=== PATIENT | male | born 1985 | race Hispanic/Latino ===

== ENCOUNTER 2017-12-28 17:33 | Emergency (ER) | payer BC ==
[2017-12-28 18:13] VITALS: RESP 18; O2SAT 98
[2017-12-28] MEDS ORDERED: Sodium Chloride 0.9% 1,000 ML IV STA (18:36)
[2017-12-28] MEDS ORDERED: Iohexol 240 (50 ml) PO ONE (18:36)
--- NOTE | 2017-12-28 18:43 | ED PDOC ---
HPI: Abdomen Time Seen by Provider: 12/28/17 18:18 Chief Complaint (Nursing): Abdominal Pain Chief Complaint (Provider): abdominal pain History Per: Patient History/Exam Limitations: no limitations Onset/Duration Of Symptoms: Hrs (today) Current Symptoms Are (Timing): Still Present Context: Food Location Of Pain/Discomfort: Epigastric, LLQ Quality Of Discomfort: Cramping, Burning Associated Symptoms: denies: Nausea, Vomiting, Diarrhea, Back Pain, Chest Pain, Constipation, Urinary Symptoms Additional Complaint(s): Cruz Frias is a 32 year old male, with no significant past medical history , who presents to the emergency department complaining of an intermittent epigastric and LLQ pain onset today. Patient states symptoms began after he had lunch and describes the pain as a burning and cramping sensation. He denies similar symptoms in the past. Patient went to [facility] where has given a prescription for a CT to rule out diverticulitis. He denies any chest pain, back pain, weakness, numbness or tingling, incontinence, dysuria, constipation, shortness of breath, headache, dizziness, nausea, vomit or diarrhea. No further medical complaints. PMD: None provided. Past Medical History Reviewed: Historical Data, Nursing Documentation, Vital Signs Vital Signs: Last Vital Signs Temp 97.9 F 12/28/17 18:10 Pulse 77 12/28/17 18:10 Resp 18 12/28/17 18:10 BP 128/82 12/28/17 18:10 Pulse Ox 98 12/28/17 22:55 - Medical History PMH: No Chronic Diseases - Surgical History Surgical History: No Surg Hx - Family History Family History: States: No Known Family Hx - Home Medications Home Medications: Ambulatory Orders Medication Instructions Recorded No Known Home Med 12/28/17 - Allergies Allergies/Adverse Reactions: Allergies Allergy/AdvReac Type Severity Reaction Status Date / Time No Known Allergies Allergy Verified 12/28/17 18:13 Review of Systems ROS Statement: Except As Marked, All Systems Reviewed And Found Negative Cardiovascular: Negative for: Chest Pain Respiratory: Negative for: Shortness of Breath Gastrointestinal: Positive for: Abdominal Pain (epigastric and LLQ). Negative for: Nausea, Vomiting, Diarrhea, Constipation Genitourinary Male: Negative for: Incontinence Musculoskeletal: Negative for: Back Pain Neurological: Negative for: Weakness, Numbness (tingling), Headache, Dizziness Physical Exam - Reviewed Nursing Documentation Reviewed: Yes Vital Signs Reviewed: Yes - Physical Exam Appears: Positive for: Non-toxic Head Exam: Positive for: ATRAUMATIC, NORMOCEPHALIC Skin: Positive for: Normal Color, Warm, Dry Eye Exam: Positive for: Normal appearance, EOMI, PERRL Neck: Positive for: Painless ROM Cardiovascular/Chest: Positive for: Regular Rate, Rhythm. Negative for: Murmur Respiratory: Positive for: Normal Breath Sounds (clear bilaterally). Negative for: Respiratory Distress Gastrointestinal/Abdominal: Positive for: Tenderness (LLQ) Back: Negative for: L CVA Tenderness, R CVA Tenderness, Vertebral Tenderness Extremity: Positive for: Normal ROM (upper and lower extremities). Negative for : Deformity, Swelling Neurologic/Psych: Positive for: Alert, Oriented. Negative for: Motor/Sensory Deficits - Laboratory Results Result Diagrams: 12/28/17 20:05 12/28/17 20:05 Interpretation Of Abn Labs: no acute - ECG O2 Sat by Pulse Oximetry: 98 (RA) Pulse Ox Interpretation: Normal - CT Scan/US ct Other Rad Studies (CT/US): Read By Radiologist Other Rad Interpretation: no acute - Progress ED Course And Treament: 2319: Stable. AAOx3. Pain free. Tolerated PO. Fu with pcp. Medical Decision Making Medical Decision Making: Time: 18:18 Initial Impression: abdominal pain Initial Plan: --Abd Pelvis PO & IV Contrast [CT] --CMP --CBC w/ differential --Omnipaque 240 50 ml PO --Sodium Chloride 1,000 ml IV 1,000 mls/hr --Reevaluation 18:19 -Patient is currently refusing medications, states he just wants the CT. 22:50 Abdomen & Pelvis CT FINDINGS: Lung bases: Unremarkable. No mass. No consolidation. ABDOMEN: Liver: Unremarkable. No mass. Gallbladder and bile ducts: Unremarkable. No calcified stones. No ductal dilation. Pancreas: Unremarkable. No mass. No ductal dilation. Spleen: Unremarkable. No splenomegaly. Adrenals: Unremarkable. No mass. Kidneys and ureters: Unremarkable. No solid mass. No hydronephrosis. Stomach and bowel: There is a moderate amount of retained stool in the colon. The small bowel loops are mildly prominent without a transition point to suggest small bowel obstruction. No mucosal thickening. There is no wall thickening or pericolonic stranding to suggest colitis. PELVIS: Appendix: A normal appendix is identified. Bladder: Unremarkable. No mass. Reproductive: Unremarkable as visualized. ABDOMEN and PELVIS: Intraperitoneal space: Unremarkable. No free air. No significant fluid collection. Bones/joints: No acute fracture. No dislocation. Soft tissues: Unremarkable. Vasculature: Unremarkable. No abdominal aortic aneurysm. Lymph nodes: Unremarkable. No enlarged lymph nodes. IMPRESSION: No evidence of an acute intra-abdominal or pelvic abnormality. ~ Scribe Attestation: Documented by Eliceo Manley, acting as a scribe for José Montiel MD. Provider Scribe Attestation: All medical record entries made by the Scribe were at my direction and personally dictated by me. I have reviewed the chart and agree that the record accurately reflects my personal performance of the history, physical exam, medical decision making, and the department course for this patient. I have also personally directed, reviewed, and agree with the discharge instructions and disposition. Disposition - Clinical Impression Clinical Impression: Abdominal pain - Patient ED Disposition Is Patient to be Admitted: No Counseled Patient/Family Regarding: Studies Performed, Diagnosis, Need For Followup - Disposition Referrals: [facility] [Outside] - 12/29/17 Disposition: Routine/Home Disposition Time: 23:20 Condition: STABLE Additional Instructions: Return if not better in 3 days. Instructions: Acute Abdomen (Belly Pain) Forms: [employer] ([place]), [facility] ED School/Work Excuse
[2017-12-28 20:29] LABS: BASO % 0.2 % (0.0-2.0); EOS # 0.2 K/uL (0.0-0.7); EOS % 2.1 % (0.0-4.0); HEMOGLOBIN 16.3 g/dL (12.0-18.0); LYMPH # 1.4 K/uL (1.0-4.3); MEAN CELL VOLUME 90.4 fl (80.0-94.0); MEAN CORPUSCULAR HEMOGLOBIN 30.3 pg (27.0-31.0); MEAN CORPUSCULAR HGB CONC 33.5 g/dL (33.0-37.0); MEAN PLATELET VOLUME 9.4 fl (7.2-11.7); MONO # 0.6 K/uL (0.0-0.8); MONO % 6.8 % (0.0-10.0); NEUT # 6.5 K/uL (1.8-7.0); NEUT % 74.9 % (50.0-75.0); NRBC % 0.1 % (0.0-0.0); RBC 5.36 Mil/uL (4.40-5.90); RED CELL DISTRIBUTION WIDTH 13.6 % (11.5-14.5); WHITE BLOOD COUNT 8.7 K/uL (4.8-10.8)
[2017-12-28 20:43] LABS: ALB/GLOB RATIO 1.4 (1.0-2.1); ALBUMIN 4.3 g/dL (3.5-5.0); ALT/SGPT 46 U/L (21-72); AST/SGOT 44 U/L (17-59); BLOOD UREA NITROGEN 16 mg/dl (9-20); CALCIUM 9.4 mg/dL (8.4-10.2); GFR AFRICAN-AMERICAN > 60; GFR NON-AFRICAN AMERICAN > 60
[2017-12-28] MEDS ORDERED: Sodium Chloride 0.9% 50 ML IV ONE (21:26)
[2017-12-28] MEDS ORDERED: Iohexol 300 100 ML IJ ONE (21:26)
--- NOTE | 2017-12-28 22:51 | CT ---
EXAM: CT Abdomen and Pelvis With Intravenous Contrast CLINICAL HISTORY: 32 years old, male; Pain; Abdominal pain; Localized; Left lower quadrant (llq); Additional info: Abd pain. Sent phy. Doc. TECHNIQUE: Axial computed tomography images of the abdomen and pelvis with intravenous contrast. All CT scans at this facility use one or more dose reduction techniques, viz.: automated exposure control; ma/kV adjustment per patient size (including targeted exams where dose is matched to indication; i.e. head); or iterative reconstruction technique. Coronal and sagittal reformatted images were created and reviewed. CONTRAST: 95 mL of [id number] administered intravenously. COMPARISON: No relevant prior studies available. FINDINGS: Lung bases: Unremarkable. No mass. No consolidation. ABDOMEN: Liver: Unremarkable. No mass. Gallbladder and bile ducts: Unremarkable. No calcified stones. No ductal dilation. Pancreas: Unremarkable. No mass. No ductal dilation. Spleen: Unremarkable. No splenomegaly. Adrenals: Unremarkable. No mass. Kidneys and ureters: Unremarkable. No solid mass. No hydronephrosis. Stomach and bowel: There is a moderate amount of retained stool in the colon. The small bowel loops are mildly prominent without a transition point to suggest small bowel obstruction. No mucosal thickening. There is no wall thickening or pericolonic stranding to suggest colitis. PELVIS: Appendix: A normal appendix is identified. Bladder: Unremarkable. No mass. Reproductive: Unremarkable as visualized. ABDOMEN and PELVIS: Intraperitoneal space: Unremarkable. No free air. No significant fluid collection. Bones/joints: No acute fracture. No dislocation. Soft tissues: Unremarkable. Vasculature: Unremarkable. No abdominal aortic aneurysm. Lymph nodes: Unremarkable. No enlarged lymph nodes. IMPRESSION: No evidence of an acute intra-abdominal or pelvic abnormality.
[2017-12-29 00:15] VITALS: BP 140/84; PULSE 82; TEMP 98.2
== END 2017-12-29 00:15 | disposition home or self-care (01) ==
LOC: H.ER 17:33
DX: R10.13 Epigastric pain (principal)
CPT/HCPCS: 74177; 80053; 85025; 99283; J7030; Q9966; Q9967